=== PATIENT | male | born 1980 | race African-American/Black ===

== ENCOUNTER 2022-02-15 16:31 | Emergency (ER) | payer MEDICAID, OTHER ==
[~2022-02-15] VITALS: Ht 172.7 cm; Wt 78.0 kg
[2022-02-15] MEDS ORDERED: IBUPROFEN 400MG TABLET PO ONE (20:30)
[2022-02-15] MEDS ORDERED: IBUP-2028 MT (22:17)
[2022-02-15 22:33] VITALS: BP 105/78
== END 2022-02-15 22:36 | disposition home or self-care (01) ==
LOC: ER 16:31
DX: S09.90XA Unspecified injury of head, initial encounter (principal); F12.10 Cannabis abuse, uncomplicated; Y04.0XXA Assault by unarmed brawl or fight, initial encounter; Y93.89 Activity, other specified; Y92.89 Other specified places as the place of occurrence of the external cause; Y99.8 Other external cause status
CPT/HCPCS: 73560; 99284

== ENCOUNTER 2023-04-04 00:15 | Emergency (ER) | payer MEDICAID ==
[~2023-04-04] VITALS: Ht 182.9 cm; Wt 88.0 kg
[~2023-04-04 00:15] MED LIST: IBUP-2028 MT
[2023-04-04 00:51] VITALS: BP 113/102; PULSE 119; RESP 18; TEMP 98.7; O2SAT 97
[2023-04-04] MEDS ORDERED: TETANUS, DIPHTHERIA, PERTUSSIS VAC/PF 0.5ML (>10YR OLD) IM ONE (03:15)
[2023-04-04] MEDS ORDERED: LIDOCAINE HCL/PF 1% 10 MG/ML 5ML VIAL INFIL ONE (03:15)
[2023-04-04] MEDS ORDERED: MUPI1OIN4 TP (03:16)
[2023-04-04] MEDS ORDERED: CEPH500C2 MT (03:16)
== END 2023-04-04 04:00 | disposition home or self-care (01) ==
LOC: ER 00:15
DX: S41.111A Laceration without foreign body of right upper arm, initial encounter (principal); W26.0XXA Contact with knife, initial encounter; Y93.89 Activity, other specified; Y92.89 Other specified places as the place of occurrence of the external cause; Y99.8 Other external cause status
CPT/HCPCS: 99283; 90715; 12001; 90471; J3490